=== PATIENT | female | born 1960 | race Caucasian/White ===

== ENCOUNTER → 2016-12-05 | Outpatient (CLI) | payer BC ==
--- NOTE | 2016-12-05 13:16 | KCIC ---
Examination: MRI of the left ankle without contrast. HISTORY History of left ankle pain, pain in the heel. COMPARISON None available Technique: Multiplanar, multisequence MR imaging of the left ankle was performed without contrast. Findings : The attachment of the Achilles tendon to the calcaneus grossly appears intact. There is mild increased signal in the of the plantar fascial attachment to the calcaneus medially with surrounding mild edema likely plantar fasciitis. The attachment of the flexor tendons grossly appears unremarkable. A small amount of fluid identified around the posterior tibialis tendon this proximal to the navicular bone likely mild tenosynovitis. The anterior extensor compartment tendons grossly appears unremarkable. The attachment of the peroneus brevis, peroneus longus tendon grossly appears intact. There is minimal amount of fluid identified surrounding the peroneus tendons. The deltoid ligament appears intact however there is mild increased signal identified within the deep fibers of data ligament likely sprain. The tibial spring component of the deltoid ligament appears intact. The anterior tibiofibular ligament, posterior tibiofibular ligament appear intact. The anterior talofibular ligament is not identified likely secondary to injury or tear. The posterior talofibular ligament appears intact. There is mild thickened appearance of the calcaneofibular ligament likely scarring. Small amount of joint effusion identified in the ankle joint. A small amount of fluid identified in the anterolateral gutter. The alignment of the tarsometatarsal joints grossly appears unremarkable. IMPRESSION - There is mild increased T2 signal identified in the medial aspect of the plantar fascia at its attachment to the calcaneus with surrounding mild edema likely plantar fasciitis. - An intact anterior talofibular ligament is not identified likely tear with a small amount of fluid identified in the ankle joint. - Small amount of fluid identified surrounding the posterior tibialis tendon. Correlate for tenosynovitis.There is minimal amount of fluid identified surrounding the peroneal tendons with faint trabecular edema identified in the lateral malleolus posteriorly, question tenosynovitis. - Mild increased T2 signal identified within the deep fibers of the deltoid ligament, question sprain. Electronically signed by: Moises Cummins (Dec 05, 2016 13:14:52)
== END | disposition home or self-care (01) ==
LOC: KCIC MRI 10:50
PROVIDERS: ATTEND Podiatrist Foot & Ankle Surgery
DX: S93.492A Sprain of other ligament of left ankle, initial encounter (principal); M65.872 Other synovitis and tenosynovitis, left ankle and foot; M25.472 Effusion, left ankle; X58.XXXA Exposure to other specified factors, initial encounter; Y93.89 Activity, other specified; Y92.89 Other specified places as the place of occurrence of the external cause; Y99.8 Other external cause status
CPT/HCPCS: 73721